=== PATIENT | male | born 1955 | race Caucasian/White ===

== ENCOUNTER 2016-11-19 15:23 | Emergency (ER) | payer BC ==
[~2016-11-19 15:23] MED LIST: AMLODIPINE BESYL5 MG PO; ATENOLOL25 MG; ATENOLOL50 M1 PO; COUMADIN5 MG; COUMADIN7.5 M1 PO; DIGOX250 MCG PO; DIGOXIN250 MCG; PRILOSEC20 MG; TYLENOL WITH C1 EACH PO; VITAMIN D PO; WELCHOL625 M1 PO
[2016-11-19] MEDS ORDERED: XARELTO20 M1 PO (15:54)
[2016-11-19] MEDS ORDERED: ZENPEP DR 40,01 EACH PO (15:55)
[2016-11-19 16:53] LABS: BASO % 0.3 % (0-2); EOS % 0.8 % (0-7); EOSINOPHIL ABSOLUTE COUNT 0.1 tho/cmm (0.0-0.7); HCT-HEMATOCRIT 41.2 % (36.0-53.5); HGB-HEMOGLOBIN 13.7 gm/dl (13.5-17.0); IMMATURE GRANULOCYTES ABSOLUTE 0.02 tho/cmm (0-0.03); IMMATURE GRANULOCYTES PERCENT 0.2 % (0-0.3); LYMPH % 18.1 % (20-45); LYMPH ABSOLUTE COUNT 1.7 tho/cmm (0.8-4.5); MCH (MEAN CORPUSCULAR HGB) 30.9 pg (28.0-32.0); MCHC MEAN CORPUSCULAR HGB CONC 33.3 % (32.0-36.0); MCV (MEAN CELL VOLUME) 92.8 fl (82.0-96.0); MEAN PLATELET VOLUME 11.2 cmc (9.4-12.4); MONO % 4.8 % (0-12); MONOCYTE ABSOLUTE COUNT 0.5 tho/cmm (0.0-1.2); NEUTROPHIL ABSOLUTE COUNT 7.2 tho/cmm (1.6-8.0); NEUTROPHIL-AUTOMATED 7.2 tho/cmm (1.6-8.0); NEUTROPHILS % 75.8 % (40-80); PLATELET COUNT 188 tho/cmm (150-450); RED BLOOD COUNT 4.44 mil/cmm (4.40-5.70); RED CELL DISTRIBUTION WIDTH 13.7 % (12.4-16.4); WHITE BLOOD COUNT 9.5 tho/cmm (4.0-10.0)
[2016-11-19 17:05] LABS: ANION GAP 9 mmol/L (0-20); BLOOD UREA NITROGEN 16 mg/dl (6-24); CALCIUM 7.8 mg/dl (8.5-10.5); CARBON DIOXIDE-VENOUS 24 mmol/L (22-32); CHLORIDE 114 mmol/l (96-110); CREATININE 1.08 mg/dl (0.60-1.30); GLUCOSE 106 mg/dL (70-110); SODIUM 142 mmol/L (135-145); eGFR VALUE FOR BLACK 84 mL/Min
[2016-11-19 17:15] LABS: URINE BILIRUBIN NEGATIVE (NEG); URINE BLOOD NEGATIVE (NEG); URINE GLUCOSE (UA) NEGATIVE (NEG); URINE KETONE NEGATIVE (NEG); URINE LEUKOCYTE ESTERASE NEGATIVE (NEG); URINE NITRITE NEGATIVE (NEG); URINE PROTEIN NEGATIVE (NEG)
[2016-11-19 17:17] LABS: URINE APPEARANCE CLEAR; URINE COLOR YELLOW
[2016-11-19 17:18] LABS: POTASSIUM 4.7 mmol/L (3.7-5.1)
== END 2016-11-19 18:24 ==
LOC: EDMED 15:23
PROVIDERS: Emergency Medicine
DX: R19.7 Diarrhea, unspecified (principal); I48.91 Unspecified atrial fibrillation; Z90.89 Acquired absence of other organs